=== PATIENT | female | born 1970 | race Two or more races ===

== ENCOUNTER 2021-05-12 19:33 | Emergency (ER) | payer OTHER ==
[~2021-05-12] VITALS: Ht 157.5 cm; Wt 86.2 kg
[2021-05-13] MEDS ORDERED: KETO10TA2 PO (03:22)
== END 2021-05-13 03:36 ==
LOC: ER 19:33
DX: R10.11 Right upper quadrant pain (principal); R07.89 Other chest pain